=== PATIENT | female | born 1965 | race Native Hawaiian/Other Pacific Islander ===

== ENCOUNTER 2019-05-17 18:28 | Emergency (ER) | payer OTHER ==
[~2019-05-17] VITALS: Ht 160 cm; Wt 63.5 kg
[2019-05-17 18:28] VITALS: BP 131/85; TEMP 97.5
[2019-05-17] MEDS ORDERED: FURO20TA67 PO (18:44)
[2019-05-17] MEDS ORDERED: ZESTRIL40 MG PO (18:44)
[2019-05-17 20:01] LABS: PLATELET COUNT 255 K/uL (152-353)
[2019-05-17 20:06] LABS: POTASSIUM 2.9 mmol/L (3.6-5.2)
== END 2019-05-17 20:45 | disposition home or self-care (01) ==
LOC: ED 18:28
PROVIDERS: Family Medicine
DX: R22.43 Localized swelling, mass and lump, lower limb, bilateral (principal); R06.02 Shortness of breath
CPT/HCPCS: 36415; 80053; 82550; 83880; 84484; 85027; 85379; 93005; 99283